=== PATIENT | female | born 1980 | race Caucasian/White ===

== ENCOUNTER 2017-04-03 14:54 | Emergency (ER) | payer BC ==
[~2017-04-03] VITALS: Ht 160 cm; Wt 56.0 kg
[~2017-04-03 14:54] MED LIST: FRRS300 PO; IBUP-1050 PO; PRENTAB26 PO
[2017-04-03 15:03] VITALS: TEMP 37; Ht 160 cm; Wt 56.0 kg
[2017-04-03] MEDS ORDERED: VNTHFA/IN INH (15:39)
[2017-04-03] MEDS ORDERED: AZIT250T PO (15:39)
[2017-04-03] MEDS ORDERED: SODIUM CHLORIDE 0.9% 500ML 500 ML IV STA (15:42)
[2017-04-03 16:01] VITALS: O2SAT 98
--- NOTE | 2017-04-03 16:16 | DIAGNOSTIC IMAGING REPORT ---
CHEST ONE VIEW PORTABLE CLINICAL HISTORY: Fever, sepsis. COMPARISON STUDY: No previous studies for comparison. FINDINGS: The cardiac and mediastinal contours are normal. There is no evidence of focal pulmonary consolidation. There is no evidence of failure. No pleural effusions are visualized.[ IMPRESSION: No active disease in the chest. Electronically signed by: Irwin Morataya M.D. 04/03/2017 4:15 PM Dictated Date/Time: 04/03/2017 4:14 PM
[2017-04-03 16:26] LABS: BASO % 0.4 %; BASO ABS # 0.03 K/uL (0-0.2); COMPLETE YES; EOS % 0.1 %; IG% 0.2 %; LYMPH ABS # 0.99 K/uL (1.2-3.4); MEAN CORPUSCULAR HEMOGLOBIN 30.9 pg (25-34); MEAN CORPUSCULAR HGB CONC 35.5 g/dl (32-36); MEAN PLATELET VOLUME 11.6 fL (7.4-10.4); MONO % 8.6 %; NEUT % 78.7 %; PLATELET COUNT 233 K/uL (130-400); RED BLOOD COUNT 4.37 M/uL (4.2-5.4); WHITE BLOOD COUNT 8.26 K/uL (4.8-10.8)
[2017-04-03 16:35] LABS: INR 1.1 (0.9-1.1); PARTIAL THROMBOPLASTIN RATIO 1.2
[2017-04-03 16:47] LABS: ALT/SGPT 19 U/L (12-78); AST/SGOT 19 U/L (15-37); BLOOD UREA NITROGEN 7 mg/dl (7-18); BUN/CREATININE RATIO 9.2 (10-20); CALCIUM 8.8 mg/dl (8.5-10.1); CARBON DIOXIDE 22 mmol/L (21-32); CHLORIDE 104 mmol/L (98-107); CREATININE 0.79 mg/dl (0.60-1.20); GLUCOSE 106 mg/dl (70-99); POTASSIUM 2.8 mmol/L (3.5-5.1); SODIUM 135 mmol/L (136-145)
[2017-04-03 16:58] LABS: ALKALINE PHOSPHATASE 71 U/L (45-117); CKMB/CK RATIO 1.4 (0-3.0)
[2017-04-03] MEDS ORDERED: POTASSIUM CHLORIDE 10 MEQ TABCR PO STA (17:01)
--- NOTE | 2017-04-03 17:06 | EMERGENCY ROOM VISIT NOTE ---
History Report prepared by Abdirashid: Mendoza Marquez Under the Supervision of: Dr. Foreign Erickson D.O. First contact with patient: 15:32 Chief Complaint: ALLERGIC REACTION Stated Complaint: ALLERGIC REACTION History of Present Illness The patient is a 36 year old female who presents to the Emergency Room with complaints of numbness and tingling in her mouth, tongue, and legs that began 45 minutes ago. The patient states she was watching [place] movies with her daughter when her symptoms started. The patient states she was seen at urgent care recently and has been taking antibiotics and Albuterol. The patient woke up yesterday and lost her voice and states that her chest tightness began 4 days ago while she was carrying boxes to her car. The patient states she also has chest and head congestion and shortness of breath. The patient denies nausea. Of note, the patient is employed as a school psychologist and reports that she has been stressed for the past 3 years and more recently in preparation for the holidays. Source of History: patient Onset: prior to arrival Position: tongue, leg (bilateral), other (global ) Quality: tingling, numbness Timing: constant Modifying Factors (Worsening): exertion, other (stress) Associated Symptoms: + chest pain (tightness), + SOB, No nausea Note: Pt has a cold, hoarse voice, and is generally overworked. Review of Systems See HPI for pertinent positives & negatives. A total of 10 systems reviewed and were otherwise negative. Social History Smoking Status: Never Smoker Marital Status: Housing Status: lives with family Occupation Status: employed Current/Historical Medications Scheduled Albuterol Hfa (Ventolin Hfa), 2 PUFFS INH Q6H Azithromycin (Zithromax), 250 MG PO DAILY Allergies Coded Allergies: Diphenhydramine (Unverified Adverse Reaction, Severe, MAKES SKIN CRAWL, ) Pseudoephedrine (Unverified Adverse Reaction, Severe, MAKES SKIN CRAWL, ) Physical Exam Vital Signs Date Time Temp Pulse Resp B/P (MAP) Pulse Ox O2 Delivery O2 Flow Rate FiO2 04/03/17 16:01 98 Room Air 04/03/17 15:57 98 Room Air 04/03/17 15:21 109 04/03/17 15:03 37.0 104 24 146/77 100 Room Air Physical Exam CONSTITUTIONAL/VITAL SIGNS: Reviewed / noted above. GENERAL: Non-toxic in appearance. INTEGUMENTARY: Warm, dry, and [place]. HEAD: Normocephalic. EYES: without scleral icterus or trauma. ENT/OROPHARYNX: clear and moist. LYMPHADENOPATHY/NECK: Is supple without lymphadenopathy or meningismus. RESPIRATORY: Lungs clear and equal. CARDIOVASCULAR: Regular rate and rhythm. GI/ABDOMEN: Soft and nontender. No organomegaly or pulsatile mass. No rebound or guarding. Normal bowel sounds. EXTREMITIES: Warm and well perfused. BACK: No CVA tenderness. NEUROLOGICAL: Intact without focal deficits. PSYCHIATRIC: normal affect. MUSCULOSKELETAL: Normally developed with good muscle tone. Medical Decision & Procedures ER Provider Diagnostic Interpretation: Radiology results as stated below per my review and radiologist interpretation: CHEST ONE VIEW PORTABLE CLINICAL HISTORY: Fever, sepsis. COMPARISON STUDY: No previous studies for comparison. FINDINGS: The cardiac and mediastinal contours are normal. There is no evidence of focal pulmonary consolidation. There is no evidence of failure. No pleural effusions are visualized.[ IMPRESSION: No active disease in the chest. Electronically signed by: Irwin Morataya M.D. 04/03/2017 4:15 PM Dictated Date/Time: 04/03/2017 4:14 PM Laboratory Results 04/03/17 16:00 Red Blood Count 4.37, Mean Corpuscular Volume 87.0, Mean Corpuscular Hemoglobin 30.9, Mean Corpuscular Hemoglobin Concent 35.5, Mean Platelet Volume 11.6, Neutrophils (%) (Auto) 78.7, Lymphocytes (%) (Auto) 12.0, Monocytes (%) (Auto) 8.6, Eosinophils (%) (Auto) 0.1, Basophils (%) (Auto) 0.4, Neutrophils # (Auto) 6.50, Lymphocytes # (Auto) 0.99, Monocytes # (Auto) 0.71, Eosinophils # (Auto) 0.01, Basophils # (Auto) 0.03 04/03/17 16:00 Test 04/03/17 16:00 White Blood Count 8.26 K/uL (4.8-10.8) Red Blood Count 4.37 M/uL (4.2-5.4) Hemoglobin 13.5 g/dL (12.0-16.0) Hematocrit 38.0 % (37-47) Mean Corpuscular Volume 87.0 fL (80-100) Mean Corpuscular Hemoglobin 30.9 pg (25-34) Mean Corpuscular Hemoglobin Concent 35.5 g/dl (32-36) Platelet Count 233 K/uL (130-400) Mean Platelet Volume 11.6 fL (7.4-10.4) Neutrophils (%) (Auto) 78.7 % Lymphocytes (%) (Auto) 12.0 % Monocytes (%) (Auto) 8.6 % Eosinophils (%) (Auto) 0.1 % Basophils (%) (Auto) 0.4 % Neutrophils # (Auto) 6.50 K/uL (1.4-6.5) Lymphocytes # (Auto) 0.99 K/uL (1.2-3.4) Monocytes # (Auto) 0.71 K/uL (0.11-0.59) Eosinophils # (Auto) 0.01 K/uL (0-0.5) Basophils # (Auto) 0.03 K/uL (0-0.2) RDW Standard Deviation 40.0 fL (36.4-46.3) RDW Coefficient of Variation 12.4 % (11.5-14.5) Immature Granulocyte % (Auto) 0.2 % Immature Granulocyte # (Auto) 0.02 K/uL (0.00-0.02) Prothrombin Time 12.0 SECONDS (9.0-12.0) Prothromb Time International Ratio 1.1 (0.9-1.1) Activated Partial Thromboplast Time 30.9 SECONDS (21.0-31.0) Partial Thromboplastin Ratio 1.2 Anion Gap 9.0 mmol/L (3-11) Est Creatinine Clear Calc Drug Dose 80.6 ml/min Estimated GFR () 110.8 Estimated GFR (Non- 95.6 BUN/Creatinine Ratio 9.2 (10-20) Calcium Level 8.8 mg/dl (8.5-10.1) Total Bilirubin 0.8 mg/dl (0.2-1) Direct Bilirubin 0.2 mg/dl (0-0.2) Aspartate Amino Transf (AST/SGOT) 19 U/L (15-37) Alanine Aminotransferase (ALT/SGPT) 19 U/L (12-78) Alkaline Phosphatase 71 U/L (45-117) Total Creatine Kinase 126 U/L (26-192) Creatine Kinase MB 1.8 ng/ml (0.5-3.6) Creatine Kinase MB Ratio 1.4 (0-3.0) Troponin I < 0.015 ng/ml (0-0.045) Total Protein 7.7 gm/dl (6.4-8.2) Albumin 4.2 gm/dl (3.4-5.0) Lipase 118 U/L (73-393) Thyroid Stimulating Hormone (TSH) 1.270 uIu/ml (0.300-4.500) Laboratory results as stated above per my review. Medications Administered Medications (Trade) Dose Ordered Sig/Pham Route Start Time Stop Time Status Last Admin Dose Admin Sodium Chloride 500 ml @ 999 mls/hr Q31M STAT IV 04/03/17 15:42 04/03/17 16:12 DC 04/03/17 16:14 999 MLS/HR ECG Indication: palpitations, weakness Rate (beats per minute): 70 Rhythm: normal sinus Findings: no acute ischemic change, no ectopy ED Course 1533: Previous medical records were reviewed. The patient was evaluated in room C11. A complete history and physical examination was performed. 1542: Sodium Chloride 500 ml @ 999 mls/hr IV 1700: On reevaluation, the patient is doing well. I discussed the results and findings with the patient. She verbalized agreement of the treatment plan. She was discharged home. Medical Decision Differential includes acute coronary syndrome, myocardial infarction, CVA, TIA, anemia, infection, pneumonia, UTI, pyelonephritis, poor nutrition, dehydration, electrolyte disturbance,hypoglycemia. This is a 36-year-old female who presents to the ED with a chief complaint of generalized not feeling well. The patient states that she has been under a lot of stress recently and has recently had an upper respiratory infection. She states that she had some chest congestion and nasal congestion and laryngitis for several days. She was seen in urgent care and started on antibiotics yesterday and also given an inhaler. Today after taking the inhaler she developed some numbness around her lips and tingling in her arms and legs. She states that this lasted for about 30 minutes or so. She does not report any focal weakness, severe headaches or other specific symptoms other than that noted above. The patient's physical exam was unremarkable with the exception of some changes in her voice related to laryngitis. Vital signs are stable. Chest x-ray did not show acute disease. CBC is normal, complete metabolic panel was unremarkable with exception of potassium of 2.8. Troponin was negative. TSH was normal. EKG Medication Reconcilliation Current Medication List: was personally reviewed by me Blood Pressure Screening Patient's blood pressure: Elevated blood pressure Blood pressure disposition: Elevated BP felt to be situational Impression Primary Impression: Paresthesia Additional Impression: URI (upper respiratory infection) Scribe Attestation The scribe's documentation has been prepared under my direction and personally reviewed by me in its entirety. I confirm that the note above accurately reflects all work, treatment, procedures, and medical decision making performed by me. Departure Information Dispostion Home / Self-Care Referrals Niya Mckenna M.D. (PCP) Patient Instructions My [facility] Additional Instructions Follow-up with your doctor if symptoms continue or worsen. Return here for severe worsening of symptoms or new concerns. Test results today revealed your potassium level was slightly low. You were given potassium for this. Increase daily diet of parents that would increase potassium such as bananas. Take a multivitamin daily. Problem Qualifiers
[2017-04-03 17:39] VITALS: BP 136/71; PULSE 77; O2SAT 98
== END 2017-04-03 17:46 | disposition home or self-care (01) ==
LOC: C.EDB 14:55 → C.EDC 17:46
DX: R20.2 Paresthesia of skin (principal); J06.9 Acute upper respiratory infection, unspecified